=== PATIENT | male | born 1975 ===

== ENCOUNTER 2018-01-14 22:16 | Inpatient (IN) | payer MEDICAID, OTHER ==
[2018-01-14] MEDS ORDERED: Morphine 4 MG/ML VIAL IV STA (22:40)
[2018-01-14] MEDS ORDERED: Sodium Chloride 0.9% 1,000 ML IV STA (22:40)
[2018-01-14] MEDS ORDERED: Morphine 4 MG/ML VIAL ONE (22:44)
[2018-01-14 23:11] LABS: BASO # 0.1 K/uL (0.0-0.2); BASO % 0.6 % (0.0-2.0); EOS # 0.1 K/uL (0.0-0.7); HEMOGLOBIN 15.1 g/dL (12.0-18.0); LYMPH # 3.6 K/uL (1.0-4.3); LYMPH % 28.5 % (20.0-40.0); MEAN CELL VOLUME 95.6 fl (80.0-94.0); MEAN CORPUSCULAR HEMOGLOBIN 31.8 pg (27.0-31.0); MEAN CORPUSCULAR HGB CONC 33.3 g/dL (33.0-37.0); MEAN PLATELET VOLUME 10.1 fl (7.2-11.7); MONO # 1.3 K/uL (0.0-0.8); MONO % 10.6 % (0.0-10.0); NEUT # 7.4 K/uL (1.8-7.0); NEUT % 59.3 % (50.0-75.0); NRBC % 0.1 % (0.0-0.0); RBC 4.75 Mil/uL (4.40-5.90); RED CELL DISTRIBUTION WIDTH 13.3 % (11.5-14.5); WHITE BLOOD COUNT 12.5 K/uL (4.8-10.8)
[2018-01-14 23:29] LABS: CALCIUM 9.3 mg/dL (8.4-10.2)
[2018-01-14 23:44] LABS: ALB/GLOB RATIO 1.1 (1.0-2.1); ALBUMIN 4.4 g/dL (3.5-5.0)
[2018-01-15] MEDS ORDERED: Lactated Ringer's 1,000 ML IV SCH ×2 (00:15→02:00)
[2018-01-15] MEDS ORDERED: Iohexol 300 100 ML IJ ONE (00:34)
[2018-01-15] MEDS ORDERED: Sodium Chloride 0.9% 50 ML IV ONE (00:35)
[2018-01-15 00:49] LABS: URINE BILIRUBIN NEGATIVE (NEGATIVE); URINE BLOOD NEGATIVE (NEGATIVE); URINE CLARITY SLIGHTY-CLOUDY (Clear); URINE COLOR YELLOW (YELLOW); URINE GLUCOSE (UA) NEG (Normal); URINE LEUKOCYTE ESTERASE NEG Leu/uL (Negative); URINE PROTEIN NEGATIVE (NEGATIVE); URINE UROBILINOGEN 0.2-1.0 mg/dL (0.2-1.0)
--- NOTE | 2018-01-15 02:08 | CP.PCM.HP ---
<Tamar Beltre - Last Filed: 01/15/18 02:46> History of Present Illness - History of Present Illness History of Present Illness: CC: abdominal pain HPI: 42 YO make with PMHx of multi-substance (ETOH, cigarettes, marijuana and Cocaine) abuse presents to [facility] ED for abdominal pain. Pt states that his abd pain started 10 PM last night (01/14). Pain is located in the epigastria, pressure/burning like in nature, radiated belt like b/l to the flank and to the back. Pain associated with nausea and 2x episodes of emesis (NBNB). First episode of such pain, pain was initially rated as a 10/10, currently pain and nausea has resolved post IV meds. Last ETOH, marijuana and cocaine use was yesterday (01/13), drank multiple beers and took a few shots of hard liquor. PMD: none PMHx: gastritis SurgHx: appendectomy 2 yrs ago SHx: + ETOH, marijuana and Cocaine use, 20+yr smoking hx, multiple cigarettes a day FHx: denies Allergies: NKDA Meds: none Present on Admission - Present on Admission Any Indicators Present on Admission: No Review of Systems - Constitutional Constitutional: absent: Chills, Fever, Headache - Cardiovascular Cardiovascular: absent: Chest Pain, Dyspnea - Respiratory Respiratory: absent: Cough, Dyspnea - Gastrointestinal Gastrointestinal: Abdominal Pain, Nausea, Vomiting. absent: Diarrhea Past Patient History - Past Medical History & Family History Past Medical History?: Yes - Past Social History Smoking Status: Light Smoker < 10 Cigarettes Daily Alcohol: Occasional Drugs: Cannabis, Cocaine - CARDIAC Hx Cardiac Disorders: No - PULMONARY Hx Respiratory Disorders: No - NEUROLOGICAL Hx Neurological Disorder: No - HEENT Hx HEENT Problems: No - RENAL Hx Chronic Kidney Disease: No - ENDOCRINE/METABOLIC Hx Endocrine Disorders: No - HEMATOLOGICAL/ONCOLOGICAL Hx Blood Disorders: No Hx AIDS: No Hx Human Immunodeficiency Virus (HIV): No - INTEGUMENTARY Hx Dermatological Problems: No - MUSCULOSKELETAL/RHEUMATOLOGICAL Hx Falls: No - GASTROINTESTINAL Hx Gastrointestinal Disorders: Yes Hx Gastritis: Yes - GENITOURINARY/GYNECOLOGICAL Hx Genitourinary Disorders: No - PSYCHIATRIC Hx Psychophysiologic Disorder: No Hx Substance Use: No - SURGICAL HISTORY Hx Surgeries: No - ANESTHESIA Hx Anesthesia: No Hx Anesthesia Reactions: No Hx Malignant Hyperthermia: No Meds Allergies/Adverse Reactions: Allergies Allergy/AdvReac Type Severity Reaction Status Date / Time No Known Allergies Allergy Verified 01/14/18 22:25 Physical Exam - Constitutional Appears: No Acute Distress - Head Exam Head Exam: NORMAL INSPECTION, NORMOCEPHALIC - Eye Exam Eye Exam: EOMI, Normal appearance - ENT Exam ENT Exam: Mucous Membranes Moist - Respiratory Exam Respiratory Exam: Clear to Auscultation Bilateral, NORMAL BREATHING PATTERN. absent: Wheezes - Cardiovascular Exam Cardiovascular Exam: REGULAR RHYTHM, +S1, +S2 - GI/Abdominal Exam GI & Abdominal Exam: Normal Bowel Sounds, Soft. absent: Distended, Guarding, Rebound, Tenderness Additional comments: Neg samantha and turners sign Neg Hathaway's sign - Extremities Exam Extremities exam: Positive for: normal inspection. Negative for: calf tenderness, pedal edema - Back Exam Back exam: NORMAL INSPECTION. absent: CVA tenderness (L), CVA tenderness (R) - Neurological Exam Neurological exam: Alert, Oriented x3 - Psychiatric Exam Psychiatric exam: Normal Mood Results - Vital Signs Recent Vital Signs: Last Vital Signs Temp 97.9 F 01/14/18 22:26 Pulse 81 01/14/18 22:26 Resp 18 01/14/18 22:26 BP 141/101 H 01/14/18 22:26 Pulse Ox 99 01/14/18 22:26 - Labs Result Diagrams: 01/14/18 23:06 01/14/18 23:06 Labs: Laboratory Results - last 24 hr 01/14/18 01/14/18 01/15/18 23:06 23:06 00:40 WBC 12.5 H RBC 4.75 Hgb 15.1 Hct 45.4 MCV 95.6 H MCH 31.8 H MCHC 33.3 RDW 13.3 Plt Count 420 H D MPV 10.1 Neut % (Auto) 59.3 Lymph % (Auto) 28.5 [place] % (Auto) 10.6 H Eos % (Auto) 1.0 Baso % (Auto) 0.6 Neut # (Auto) 7.4 H Lymph # (Auto) 3.6 [place] # (Auto) 1.3 H Eos # (Auto) 0.1 Baso # (Auto) 0.1 Sodium 140 Potassium 5.0 Chloride 101 Carbon Dioxide 28 Anion Gap 16 BUN 20 Creatinine 1.6 H Est GFR ( Amer) 58 Est GFR (Non-Af Amer) 48 Random Glucose 90 Calcium 9.3 Total Bilirubin 0.7 AST 64 H ALT 36 Alkaline Phosphatase 57 Total Protein 8.4 H Albumin 4.4 Globulin 3.9 Albumin/Globulin Ratio 1.1 Lipase 89281 H Urine Color Yellow Urine Clarity Slighty-cloudy Urine pH 7.0 Ur Specific [place] 1.015 Urine Protein Negative Urine Glucose (UA) Neg Urine Ketones Negative Urine Blood Negative Urine Nitrate Negative Urine Bilirubin Negative Urine Urobilinogen 0.2-1.0 Ur Leukocyte Esterase Neg Assessment & Plan - Assessment and Plan (Free Text) Assessment: Assessment/Plan: 42 YO make with PMHx of multi-substance abuse (ETOH, cigarettes, marijuana and Cocaine) is admitted for acute pancreatitis. Acute pancreatitis -likely 2/2 to ETOH/substance abuse, other causes include gallstones vs elevated triglycerides -CT abd and pelvis sig for diverticulitis with inflammatory changes around the gallbladder (no stones noted). -Lipase elevated 20,000+ -[place]'s criteria: 1 (LDH 946), severe pancreatitis unlikely, 1% predicted mortality -NPO, cont IVFs, s/p 3 L bolus, cont LR @350ml/hr -Pain management: morphine PRN -GI consulted, follow up recs -AM Labs, follow up official CT reading Leukocytosis -likely 2/2 to acute pancreatitis, normal neutrophils -cont tx of pancreatitis -follow up labs Multi-substance abuse -encourage better lifestyle decisions DVT propylx -Lovenox SC <Rick Bowden - Last Filed: 01/15/18 04:51> Results - Vital Signs Recent Vital Signs: Last Vital Signs Temp 97.7 F 01/15/18 04:13 Pulse 74 01/15/18 04:13 Resp 18 01/15/18 04:13 BP 127/74 01/15/18 04:13 Pulse Ox 95 01/15/18 04:13 - Labs Result Diagrams: 01/14/18 23:06 01/14/18 23:06 Labs: Laboratory Results - last 24 hr 01/14/18 01/14/18 01/15/18 23:06 23:06 00:40 WBC 12.5 H RBC 4.75 Hgb 15.1 Hct 45.4 MCV 95.6 H MCH 31.8 H MCHC 33.3 RDW 13.3 Plt Count 420 H D MPV 10.1 Neut % (Auto) 59.3 Lymph % (Auto) 28.5 [place] % (Auto) 10.6 H Eos % (Auto) 1.0 Baso % (Auto) 0.6 Neut # (Auto) 7.4 H Lymph # (Auto) 3.6 [place] # (Auto) 1.3 H Eos # (Auto) 0.1 Baso # (Auto) 0.1 Sodium 140 Potassium 5.0 Chloride 101 Carbon Dioxide 28 Anion Gap 16 BUN 20 Creatinine 1.6 H Est GFR ( Amer) 58 Est GFR (Non-Af Amer) 48 Random Glucose 90 Calcium 9.3 Total Bilirubin 0.7 AST 64 H ALT 36 Alkaline Phosphatase 57 Lactate Dehydrogenase Total Protein 8.4 H Albumin 4.4 Globulin 3.9 Albumin/Globulin Ratio 1.1 Lipase 98265 H Urine Color Yellow Urine Clarity Slighty-cloudy Urine pH 7.0 Ur Specific [place] 1.015 Urine Protein Negative Urine Glucose (UA) Neg Urine Ketones Negative Urine Blood Negative Urine Nitrate Negative Urine Bilirubin Negative Urine Urobilinogen 0.2-1.0 Ur Leukocyte Esterase Neg 01/15/18 01:30 WBC RBC Hgb Hct MCV MCH MCHC RDW Plt Count MPV Neut % (Auto) Lymph % (Auto) [place] % (Auto) Eos % (Auto) Baso % (Auto) Neut # (Auto) Lymph # (Auto) [place] # (Auto) Eos # (Auto) Baso # (Auto) Sodium Potassium Chloride Carbon Dioxide Anion Gap BUN Creatinine Est GFR ( Amer) Est GFR (Non-Af Amer) Random Glucose Calcium Total Bilirubin AST ALT Alkaline Phosphatase Lactate Dehydrogenase 946 H Total Protein Albumin Globulin Albumin/Globulin Ratio Lipase Urine Color Urine Clarity Urine pH Ur Specific [place] Urine Protein Urine Glucose (UA) Urine Ketones Urine Blood Urine Nitrate Urine Bilirubin Urine Urobilinogen Ur Leukocyte Esterase Attending/Attestation - Attestation I have personally seen and examined this patient.: Yes I have fully participated in the care of the patient.: Yes I have reviewed all pertinent clinical information: Yes Notes (Text): 01/15/18 04:32 I saw, examined and discussed this patient with Dr Beltre. I agree with the assessment and plan which represent my direct input. This is a 42 years old male with Alcohol Abuse hx, comes with pain across the upper abdomen, band like , andradiating to the back, [place] [address] [place] Abdomen/Pelvis Uncomplicated Diverticulosis The Pancrease is of normal contour and attenuation characteristic Mild diffuse thickening of the gallbladder. The patient was given 2 liters of fluid in the ED. We will continue with Ringers lactate at 350mls/hr - Pain management with Dilaudid - NPO except medication -Consult GI Dr Gibson - Follow Renal labs and electrolytes. #. DVT Prophlaxis with SCD Rick Bowden MD 03/17/17 04:50
[2018-01-15] MEDS: Lactated Ringer's 1,000 ML IV SCH ×8 (04:11→23:14)
--- NOTE | 2018-01-15 06:01 | ED PDOC ---
HPI: Abdomen Time Seen by Provider: 01/14/18 22:28 Chief Complaint (Nursing): Abdominal Pain Chief Complaint (Provider): Epigastric abdominal pain History Per: Patient History/Exam Limitations: no limitations Onset/Duration Of Symptoms: Hrs Outside of [place] travel?: No Additional Complaint(s): 42 yo male with no medical problems, social drinker and smoker presents for e valuation of epigastric pain for 30 minutes. PT denies similar in the past. Pt states the pain wraps around his body to his back. Pt states he did not drink today but did have hard liquor the night before (01/13/18). Pt denies SOB. Pt reports nausea and vomiting without blood. Past Medical History Reviewed: Historical Data, Nursing Documentation, Vital Signs Vital Signs: Last Vital Signs Temp 97.7 F 01/15/18 04:13 Pulse 74 01/15/18 04:13 Resp 18 01/15/18 04:13 BP 127/74 01/15/18 04:13 Pulse Ox 95 01/15/18 04:13 - Medical History PMH: No Chronic Diseases Denies: Gastritis, HIV, HTN, Chronic Kidney Disease - Surgical History Surgical History: Appendectomy (1 yr ago) - Family History Family History: States: Unknown Family Hx - Living Arrangements Living Arrangements: With Family - Social History Current smoker - smoking cessation education provided: Yes Alcohol: Occasional Drugs: Cannabis, Cocaine - Immunization History Hx Tetanus Toxoid Vaccination: Yes Hx Influenza Vaccination: No Hx Pneumococcal Vaccination: No - Home Medications Home Medications: Ambulatory Orders Medication Instructions Recorded oxyCODONE/Acetaminophen [Percocet 1 ea PO Q6 PRN #20 tab 04/13/16 5/325 mg Tab] - Allergies Allergies/Adverse Reactions: Allergies Allergy/AdvReac Type Severity Reaction Status Date / Time No Known Allergies Allergy Verified 01/14/18 22:25 Review of Systems ROS Statement: Except As Marked, All Systems Reviewed And Found Negative Constitutional: Negative for: Fever, Chills Gastrointestinal: Positive for: Nausea, Vomiting, Abdominal Pain Physical Exam - Reviewed Nursing Documentation Reviewed: Yes Vital Signs Reviewed: Yes - Physical Exam Appears: Positive for: Well, Non-toxic, No Acute Distress Head Exam: Positive for: ATRAUMATIC, NORMAL INSPECTION, NORMOCEPHALIC Skin: Positive for: Normal Color, Warm, DRY Eye Exam: Positive for: Normal appearance ENT: Positive for: Normal ENT Inspection Neck: Positive for: Normal, Painless ROM Cardiovascular/Chest: Positive for: Regular Rate, Rhythm Respiratory: Positive for: Normal Breath Sounds. Negative for: Accessory Muscle Use, Respiratory Distress Gastrointestinal/Abdominal: Positive for: Soft, Tenderness ((+) epigastric tenderness ). Negative for: Normal Exam, Distended, Guarding, Rebound Back: Positive for: Normal Inspection Extremity: Positive for: Normal ROM Neurologic/Psych: Positive for: Alert, Oriented - Laboratory Results Result Diagrams: 01/14/18 23:06 01/14/18 23:06 - ECG O2 Sat by Pulse Oximetry: 95 Medical Decision Making Medical Decision Making: Lipase >20,[address] CT: The liver is of uniform attenuation without mass or defect. There is no intra or extrahepatic biliary ductal dilatation. The spleen is normal. The gallbladder is diffusely thickened. The pancreas is of normal contour and attenuation characteristics. There is no evidence of adrenal mass. Both kidneys demonstrate prompt and equal nephrograms. The kidneys are normal in size, shape and configuration. There is no evidence of renal or ureteral mass. No renal or ureteral calculi are identified. There is no hydroureter or hydronephrosis. No evidence for appendicitis. There is no bowel wall thickening. No evidence for small or large bowel obstruction. There is no evidence of abdominal ascites or lymphadenopathy. Uncomplicated colonic diverticulosis. There is no evidence of intrinsic or extrinsic bladder mass. There is no pelvic ascites or lymphadenopathy. Fat-containing umbilical hernia without incarceration. Images of the lung bases show no evidence of pleural or parenchymal mass. There are no pleural effusions. The bony structures are free of lytic or blastic lesions. IMPRESSION: Uncomplicated colonic diverticulosis. Mild diffuse thickening of the gallbladder, probably acute inflammatory pathology. This can be better evaluated by means of ultrasound exam if clinically warranted. Discussed admission with Dr. Bowden and Dr. Beltre. Discussed with Dr. Gibson. US ordered for AM Disposition - Clinical Impression Clinical Impression: Pancreatitis - Patient ED Disposition Is Patient to be Admitted: Yes - Disposition Disposition Time: 01:10 Condition: GOOD
[2018-01-15 06:59] LABS: BASO % 0.4 % (0.0-2.0); EOS % 0.2 % (0.0-4.0); HEMOGLOBIN 13.7 g/dL (12.0-18.0); LYMPH % 21.4 % (20.0-40.0); MEAN CORPUSCULAR HEMOGLOBIN 32.9 pg (27.0-31.0); MEAN CORPUSCULAR HGB CONC 34.2 g/dL (33.0-37.0); MEAN PLATELET VOLUME 9.9 fl (7.2-11.7); MONO # 0.8 K/uL (0.0-0.8); MONO % 8.4 % (0.0-10.0); NEUT # 6.6 K/uL (1.8-7.0); NEUT % 69.6 % (50.0-75.0); RBC 4.17 Mil/uL (4.40-5.90); RED CELL DISTRIBUTION WIDTH 13.1 % (11.5-14.5); WHITE BLOOD COUNT 9.5 K/uL (4.8-10.8)
[2018-01-15 07:18] LABS: LDL CHOLESTEROL 61 mg/dL (0-129)
[2018-01-15 07:24] LABS: ALB/GLOB RATIO 1.1 (1.0-2.1); ALBUMIN 3.4 g/dL (3.5-5.0); ALT/SGPT 50 U/L (21-72); AST/SGOT 50 U/L (17-59); BLOOD UREA NITROGEN 12 mg/dl (9-20); CALCIUM 8.7 mg/dL (8.4-10.2); GFR NON-AFRICAN AMERICAN > 60; HDL CHOLESTEROL 39 MG/DL (30-70)
[2018-01-15] MEDS ORDERED: Enoxaparin 40 mg Syringe SC SCH (09:00)
[2018-01-15] MEDS: Thiamine 100 mg/ml Inj IM SCH (09:58)
--- NOTE | 2018-01-15 10:18 | RAD ---
Date of service: 01/15/2018 HISTORY: pancreatitis COMPARISON: 04/12/2016 TECHNIQUE: Chest PA and lateral FINDINGS: LUNGS: No active pulmonary disease. PLEURA: No significant pleural effusion identified. No pneumothorax apparent. CARDIOVASCULAR: No aortic atherosclerotic calcification present. Normal cardiac size. No pulmonary vascular congestion. OSSEOUS STRUCTURES: No significant abnormalities. VISUALIZED UPPER ABDOMEN: Normal. OTHER FINDINGS: None. IMPRESSION: No active disease.
--- NOTE | 2018-01-15 11:41 | US ---
Date of service: 01/15/2018 HISTORY: epigastric pain, abnormal GB on CT COMPARISON: CT abdomen/pelvis 01/15/2018 TECHNIQUE: Sonographic evaluation of the abdomen. FINDINGS: LIVER: Measures 15.2 cm. Diffusely increased echogenicity of the liver parenchyma. Consistent with fatty infiltration. Smooth contour. No mass. No biliary ductal dilatation. GALLBLADDER: No cholelithiasis. Nonmobile echogenic structures are seen along the gallbladder wall the largest of which measures 6 mm in diameter. Likely polyps. A 6 mm gallbladder polyp should be followed with repeat ultrasound examination in 6 months. Mild mural thickening up to 4 mm, nonspecific. Minimal pericholecystic fluid. Negative sonographic Hathaway sign. No pericholecystic fluid. COMMON BILE DUCT: Measures 3 mm. No stones. No dilatation. PANCREAS: Unremarkable as visualized. No mass. No ductal dilatation. RIGHT KIDNEY: Measures 10.5cm. Normal echogenicity. No calculus, mass, or hydronephrosis. LEFT KIDNEY: Measures 10.6cm. Normal echogenicity. No calculus, mass, or hydronephrosis. SPLEEN: Normal in size and contour. No mass. AORTA: No aneurysmal dilatation. IVC: Unremarkable. OTHER FINDINGS: None. IMPRESSION: Mild nonspecific mural thickening of the gallbladder. Minimal pericholecystic fluid. In the absence of cholelithiasis or sonographic Hathaway sign, this is a nonspecific finding. Small gallbladder polyps, largest 6 mm. Given the presence of a 6 mm polyp, follow-up with ultrasound is advised in 6 months.
--- NOTE | 2018-01-15 12:03 | CT ---
Date of service: 01/15/2018 PROCEDURE: CT Abdomen and Pelvis with contrast HISTORY: epigastric pain, vomiting COMPARISON: 04/12/2016 TECHNIQUE: Contrast dose: 80 mL Omnipaque 300 Radiation dose: Total exam DLP = 253.67 mGy-cm. This CT exam was performed using one or more of the following dose reduction techniques: Automated exposure control, adjustment of the mA and/or kV according to patient size, and/or use of iterative reconstruction technique. FINDINGS: LOWER THORAX: Unremarkable. LIVER: Unremarkable. No gross lesion or ductal dilatation. GALLBLADDER AND BILE DUCTS: Thickened gallbladder wall with trace pericholecystic fluid. No calcified gallstones. Normal caliber common bile duct. PANCREAS: Unremarkable. No gross lesion or ductal dilatation. SPLEEN: Unremarkable. ADRENALS: Unremarkable. No mass. KIDNEYS AND URETERS: Unremarkable. No hydronephrosis. No solid mass. VASCULATURE: Unremarkable. No aortic aneurysm. No aortic atherosclerotic calcification or mural plaque present. BOWEL: Mild sigmoid diverticulosis without evidence of diverticulitis. No bowel obstruction. No other abnormal bowel loops. APPENDIX: Postoperative changes at cecal apex consistent with appendectomy. PERITONEUM: No ascites. Small umbilical hernia containing only mesenteric fat. No pneumoperitoneum. LYMPH NODES: Unremarkable. No enlarged lymph nodes. BLADDER: Suboptimally distended. No gross abnormality peer REPRODUCTIVE: Normal prostate. BONES: No acute fracture. OTHER FINDINGS: None. IMPRESSION: Gallbladder mural thickening and trace pericholecystic fluid. No calcified gallstones. Correlate with ultrasound examination. Possible cholecystitis though nonspecific finding that may also be seen in pancreatitis, acute hepatitis, etc. No other acute abnormality. The preliminary findings for this examination were reported by [facility] Radiology at 1:14 a.m. on 01/15/2018. There is concurrence of this report with the preliminary findings. d right
--- NOTE | 2018-01-15 13:01 | CP.PCM.CON ---
History of Present Illness - History of Present Illness History of Present Illness: 42 yo male with h/o multisubstance abuse including alcohol and cocaine admitted with abdominal pain (12/02 ) and elevated lipase. Was last drinking heavily on 01/13. Patient denies prior episodes of pancreatitis. Currently post medication he feels comfortable.. Review of Systems - Constitutional Constitutional: absent: Chills - EENT Eyes: absent: Blurred Vision Ears: absent: Ear Discharge Nose/Mouth/Throat: absent: Epistaxis - Cardiovascular Cardiovascular: absent: Chest Pain - Respiratory Respiratory: absent: Cough - Gastrointestinal Gastrointestinal: As Per HPI - Genitourinary Genitourinary: absent: Change in Urinary Stream Past Patient History - Past Medical History & Family History Past Medical History?: Yes - Past Social History Alcohol: Occasional Drugs: Cannabis, Cocaine - CARDIAC Hx Hypertension: No - PULMONARY Hx Respiratory Disorders: No - NEUROLOGICAL Hx Neurological Disorder: No - HEENT Hx HEENT Problems: No - RENAL Hx Chronic Kidney Disease: No - ENDOCRINE/METABOLIC Hx Endocrine Disorders: No Hx Diabetes Mellitus Type 2: No - HEMATOLOGICAL/ONCOLOGICAL Hx Human Immunodeficiency Virus (HIV): No - INTEGUMENTARY Hx Dermatological Problems: No - MUSCULOSKELETAL/RHEUMATOLOGICAL Hx Musculoskeletal Disorders: No Hx Falls: No - GASTROINTESTINAL Hx Gastritis: No - GENITOURINARY/GYNECOLOGICAL Hx Genitourinary Disorders: No - PSYCHIATRIC Hx Psychophysiologic Disorder: No Hx Substance Use: Yes (denies substance use) - SURGICAL HISTORY Hx Appendectomy: Yes (1 yr ago) - ANESTHESIA Hx Anesthesia: Yes Hx Anesthesia Reactions: No Hx Malignant Hyperthermia: No Meds Allergies/Adverse Reactions: Allergies Allergy/AdvReac Type Severity Reaction Status Date / Time No Known Allergies Allergy Verified 01/14/18 22:25 - Medications Medications: Current Medications Hydromorphone HCl (Dilaudid) 1 mg IVP Q4H PRN PRN Reason: Pain, severe (8-10) Last Admin: 01/15/18 11:46 Dose: 1 mg Hydromorphone HCl (Dilaudid) 0.5 mg IVP Q4H PRN PRN Reason: Pain, moderate (4-7) Stop: 01/17/18 04:20 Lactated Ringer's (Lactated Ringer's) 1,000 mls @ 1,000 mls/hr IV .Q1H BARBARA Last Admin: 01/15/18 01:43 Dose: 1,000 mls/hr Lactated Ringer's (Lactated Ringer's) 1,000 mls @ 350 mls/hr IV .Q2H52M [facility] Last Admin: 01/15/18 11:47 Dose: 350 mls/hr Lorazepam (Ativan) 2 mg IVP Q4H PRN PRN Reason: Agitation Ondansetron HCl (Zofran Inj) 4 mg IVP Q6 PRN PRN Reason: Nausea/Vomiting Last Admin: 01/15/18 04:52 Dose: 4 mg Pantoprazole Sodium (Protonix Inj) 40 mg IVP DAILY [facility] Last Admin: 01/15/18 09:59 Dose: 40 mg Thiamine HCl (Vitamin B1 Inj) 100 mg IM DAILY [facility] Stop: 01/18/18 09:01 Last Admin: 01/15/18 09:58 Dose: 100 mg Physical Exam - Head Exam Head Exam: ATRAUMATIC - Eye Exam Eye Exam: EOMI - ENT Exam ENT Exam: Normal Exam - Neck Exam Neck exam: Positive for: Normal Inspection - Respiratory Exam Respiratory Exam: Clear to Auscultation Bilateral - Cardiovascular Exam Cardiovascular Exam: REGULAR RHYTHM - GI/Abdominal Exam GI & Abdominal Exam: Normal Bowel Sounds, Soft - Rectal Exam Rectal Exam: NORMAL INSPECTION Results - Vital Signs Recent Vital Signs: Last Vital Signs Temp 97.6 F 01/15/18 08:42 Pulse 71 01/15/18 08:42 Resp 20 01/15/18 08:42 BP 126/76 01/15/18 08:42 Pulse Ox 97 01/15/18 08:42 - Labs Result Diagrams: 01/15/18 06:00 01/15/18 06:00 Labs: Laboratory Results - last 24 hr 01/14/18 01/14/18 01/15/18 23:06 23:06 00:40 WBC 12.5 H RBC 4.75 Hgb 15.1 Hct 45.4 MCV 95.6 H MCH 31.8 H MCHC 33.3 RDW 13.3 Plt Count 420 H D MPV 10.1 Neut % (Auto) 59.3 Lymph % (Auto) 28.5 [place] % (Auto) 10.6 H Eos % (Auto) 1.0 Baso % (Auto) 0.6 Neut # (Auto) 7.4 H Lymph # (Auto) 3.6 [place] # (Auto) 1.3 H Eos # (Auto) 0.1 Baso # (Auto) 0.1 Sodium 140 Potassium 5.0 Chloride 101 Carbon Dioxide 28 Anion Gap 16 BUN 20 Creatinine 1.6 H Est GFR ( Amer) 58 Est GFR (Non-Af Amer) 48 Random Glucose 90 Calcium 9.3 Total Bilirubin 0.7 AST 64 H ALT 36 Alkaline Phosphatase 57 Lactate Dehydrogenase Total Protein 8.4 H Albumin 4.4 Globulin 3.9 Albumin/Globulin Ratio 1.1 Triglycerides Cholesterol LDL Cholesterol Direct HDL Cholesterol Lipase 97068 H Urine Color Yellow Urine Clarity Slighty-cloudy Urine pH 7.0 Ur Specific [place] 1.015 Urine Protein Negative Urine Glucose (UA) Neg Urine Ketones Negative Urine Blood Negative Urine Nitrate Negative Urine Bilirubin Negative Urine Urobilinogen 0.2-1.0 Ur Leukocyte Esterase Neg Hep Bs Antigen 01/15/18 01/15/18 01/15/18 01:30 06:00 06:00 WBC 9.5 RBC 4.17 L Hgb 13.7 Hct 40.1 MCV 96.0 H MCH 32.9 H MCHC 34.2 RDW 13.1 Plt Count 325 MPV 9.9 Neut % (Auto) 69.6 Lymph % (Auto) 21.4 [place] % (Auto) 8.4 Eos % (Auto) 0.2 Baso % (Auto) 0.4 Neut # (Auto) 6.6 Lymph # (Auto) 2.0 [place] # (Auto) 0.8 Eos # (Auto) 0.0 Baso # (Auto) 0.0 Sodium 141 Potassium 4.1 Chloride 104 Carbon Dioxide 30 Anion Gap 11 BUN 12 Creatinine 1.0 Est GFR ( Amer) > 60 Est GFR (Non-Af Amer) > 60 Random Glucose 104 Calcium 8.7 Total Bilirubin 0.2 AST 50 ALT 50 Alkaline Phosphatase 62 Lactate Dehydrogenase 946 H Total Protein 6.3 Albumin 3.4 L D Globulin 2.9 Albumin/Globulin Ratio 1.1 Triglycerides 70 Cholesterol 100 LDL Cholesterol Direct 61 HDL Cholesterol 39 Lipase Urine Color Urine Clarity Urine pH Ur Specific [place] Urine Protein Urine Glucose (UA) Urine Ketones Urine Blood Urine Nitrate Urine Bilirubin Urine Urobilinogen Ur Leukocyte Esterase Hep Bs Antigen 01/15/18 07:20 WBC RBC Hgb Hct MCV MCH MCHC RDW Plt Count MPV Neut % (Auto) Lymph % (Auto) [place] % (Auto) Eos % (Auto) Baso % (Auto) Neut # (Auto) Lymph # (Auto) [place] # (Auto) Eos # (Auto) Baso # (Auto) Sodium Potassium Chloride Carbon Dioxide Anion Gap BUN Creatinine Est GFR ( Amer) Est GFR (Non-Af Amer) Random Glucose Calcium Total Bilirubin AST ALT Alkaline Phosphatase Lactate Dehydrogenase Total Protein Albumin Globulin Albumin/Globulin Ratio Triglycerides Cholesterol LDL Cholesterol Direct HDL Cholesterol Lipase Urine Color Urine Clarity Urine pH Ur Specific [place] Urine Protein Urine Glucose (UA) Urine Ketones Urine Blood Urine Nitrate Urine Bilirubin Urine Urobilinogen Ur Leukocyte Esterase Hep Bs Antigen Negative Assessment & Plan (1) Pancreatitis Assessment and Plan: Acute pancreatitis related to Etoh and substance abuse. IV fluids and adequate analgesia recommended. Clear liquids started today. May advance diet as tolerated Status: Acute
[2018-01-15 13:18] VITALS: BMI 23.3
[2018-01-16] MEDS: Lactated Ringer's 1,000 ML IV SCH ×5 (01:28→08:42)
[2018-01-16 07:02] LABS: OPIATES, UR NEGATIVE (NEGATIVE)
[2018-01-16 07:09] LABS: HEMOGLOBIN 13.5 g/dL (12.0-18.0); MEAN CELL VOLUME 98.4 fl (80.0-94.0); MEAN CORPUSCULAR HEMOGLOBIN 32.2 pg (27.0-31.0); MEAN CORPUSCULAR HGB CONC 32.7 g/dL (33.0-37.0); RBC 4.18 Mil/uL (4.40-5.90); WHITE BLOOD COUNT 6.8 K/uL (4.8-10.8)
[2018-01-16 07:16] LABS: BARBITURATES, UR NEGATIVE (NEGATIVE); BENZODIAZEPINES, UR NEGATIVE (NEGATIVE); PHENCYCLIDINE, UR NEGATIVE (NEGATIVE)
[2018-01-16 07:56] LABS: ALB/GLOB RATIO 1.2 (1.0-2.1); ALBUMIN 3.6 g/dL (3.5-5.0); ALT/SGPT 46 U/L (21-72); AST/SGOT 32 U/L (17-59); BLOOD UREA NITROGEN 6 mg/dl (9-20); CALCIUM 9.4 mg/dL (8.4-10.2); GFR NON-AFRICAN AMERICAN > 60; LIPASE 202 U/L (23-300)
[2018-01-16 08:10] VITALS: BP 112/76; PULSE 58; RESP 19; TEMP 97.6; O2SAT 96
[2018-01-16] MEDS: Thiamine 100 mg/ml Inj IM SCH (08:39)
--- NOTE | 2018-01-16 10:53 | CP.PCM.DIS ---
Provider - Provider Date of Admission: 01/15/18 01:19 Attending physician: Rick Bowden Primary care physician: none Consults: Gastroenterology - Dr. Gibson Time Spent in preparation of Discharge (in minutes): 30 Hospital Course - Lab Results Lab Results: Most Recent Lab Values WBC 6.8 K/uL (4.8-10.8) 01/16/18 05:30 RBC 4.18 Mil/uL (4.40-5.90) L 01/16/18 05:30 Hgb 13.5 g/dL (12.0-18.0) 01/16/18 05:30 Hct 41.2 % (35.0-51.0) 01/16/18 05:30 MCV 98.4 fl (80.0-94.0) H D 01/16/18 05:30 MCH 32.2 pg (27.0-31.0) H 01/16/18 05:30 MCHC 32.7 g/dL (33.0-37.0) L 01/16/18 05:30 RDW 13.0 % (11.5-14.5) 01/16/18 05:30 Plt Count 326 K/uL (130-400) 01/16/18 05:30 MPV 9.9 fl (7.2-11.7) 01/15/18 06:00 Neut % (Auto) 69.6 % (50.0-75.0) 01/15/18 06:00 Lymph % (Auto) 21.4 % (20.0-40.0) 01/15/18 06:00 Daniels % (Auto) 8.4 % (0.0-10.0) 01/15/18 06:00 Eos % (Auto) 0.2 % (0.0-4.0) 01/15/18 06:00 Baso % (Auto) 0.4 % (0.0-2.0) 01/15/18 06:00 Neut # (Auto) 6.6 K/uL (1.8-7.0) 01/15/18 06:00 Lymph # (Auto) 2.0 K/uL (1.0-4.3) 01/15/18 06:00 Daniels # (Auto) 0.8 K/uL (0.0-0.8) 01/15/18 06:00 Eos # (Auto) 0.0 K/uL (0.0-0.7) 01/15/18 06:00 Baso # (Auto) 0.0 K/uL (0.0-0.2) 01/15/18 06:00 Sodium 140 mmol/l (132-148) 01/16/18 05:30 Potassium 4.3 MMOL/L (3.6-5.0) 01/16/18 05:30 Chloride 102 mmol/L (98-107) 01/16/18 05:30 Carbon Dioxide 32 mmol/L (22-30) H 01/16/18 05:30 Anion Gap 10 (10-20) 01/16/18 05:30 BUN 6 mg/dl (9-20) L 01/16/18 05:30 Creatinine 1.0 mg/dl (0.8-1.5) 01/16/18 05:30 Est GFR ( Amer) > 60 01/16/18 05:30 Est GFR (Non-Af Amer) > 60 01/16/18 05:30 Random Glucose 93 mg/dL (75-110) 01/16/18 05:30 Calcium 9.4 mg/dL (8.4-10.2) 01/16/18 05:30 Phosphorus 3.3 mg/dl (2.5-4.5) 01/16/18 05:30 Magnesium 1.7 MG/DL (1.6-2.3) 01/16/18 05:30 Total Bilirubin 0.4 mg/dl (0.2-1.3) 01/16/18 05:30 AST 32 U/L (17-59) 01/16/18 05:30 ALT 46 U/L (21-72) 01/16/18 05:30 Alkaline Phosphatase 61 U/L (38-126) 01/16/18 05:30 Lactate Dehydrogenase 946 U/L (313-618) H 01/15/18 01:30 Total Protein 6.5 G/DL (6.3-8.2) 01/16/18 05:30 Albumin 3.6 g/dL (3.5-5.0) 01/16/18 05:30 Globulin 3.0 gm/dL (2.2-3.9) 01/16/18 05:30 Albumin/Globulin Ratio 1.2 (1.0-2.1) 01/16/18 05:30 Triglycerides 70 mg/DL (0-149) 01/15/18 06:00 Cholesterol 100 mg/dL (0-199) 01/15/18 06:00 LDL Cholesterol Direct 61 mg/dL (0-129) 01/15/18 06:00 HDL Cholesterol 39 MG/DL (30-70) 01/15/18 06:00 Lipase 202 U/L (23-300) 01/16/18 05:30 Urine Color Yellow (YELLOW) 01/15/18 00:40 Urine Clarity Slighty-cloudy (Clear) 01/15/18 00:40 Urine pH 7.0 (5.0-8.0) 01/15/18 00:40 Ur Specific Trosper 1.015 (1.003-1.030) 01/15/18 00:40 Urine Protein Negative mg/dL (NEGATIVE) 01/15/18 00:40 Urine Glucose (UA) Neg mg/dL (Normal) 01/15/18 00:40 Urine Ketones Negative mg/dL (NEGATIVE) 01/15/18 00:40 Urine Blood Negative (NEGATIVE) 01/15/18 00:40 Urine Nitrate Negative (NEGATIVE) 01/15/18 00:40 Urine Bilirubin Negative (NEGATIVE) 01/15/18 00:40 Urine Urobilinogen 0.2-1.0 mg/dL (0.2-1.0) 01/15/18 00:40 Ur Leukocyte Esterase Neg Reji/uL (Negative) 01/15/18 00:40 Urine Opiates Screen Negative (NEGATIVE) 01/16/18 06:41 Urine Methadone Screen Negative (NEGATIVE) 01/16/18 06:41 Ur Barbiturates Screen Negative (NEGATIVE) 01/16/18 06:41 Ur Phencyclidine Scrn Negative (NEGATIVE) 01/16/18 06:41 Ur Amphetamines Screen Negative (NEGATIVE) 01/16/18 06:41 U Benzodiazepines Scrn Negative (NEGATIVE) 01/16/18 06:41 U Oth Cocaine Metabols Negative (NEGATIVE) 01/16/18 06:41 U Cannabinoids Screen Negative (NEGATIVE) 01/16/18 06:41 Hep Bs Antigen Negative (NEGATIVE) 01/15/18 07:20 HIV 1&2 Ag/Ab, 4th Gen Nonreactive (Nonreactive) 01/15/18 07:20 - Hospital Course Hospital Course: 42yo male with PMHx of multi-substance (ETOH, cigarettes, marijuana and cocaine) abuse, presented to ED for epigastric pain radiating to back, and associated with 2 episodes NBNB emesis. Admitted to [facility] for episode of acute pancreatitis (pt denies prior episodes). Lipase on admission was found to be 20k; also noted to have Cr 1.6. GI was consulted - recommended IV fluuds, analgesia, and advancing diet as tolerated. Pt was hydrated with LR at 350 mls/hr, and received thiamine and pantoprazole. Pain was controlled. Patient tolerated liquid diet on day 2 of admission, and lipase trended down to 200. With hydration, Cr trended down to 1. This morning, patient has tolerated regular diet and is pain free. He is hemodynamically stable and afebrile. He is stable for discharge. Advised to avoid alcohol and to follow up with PMD within 1 week. Discharge Exam - Head Exam Head Exam: ATRAUMATIC - Eye Exam Eye Exam: Normal appearance - ENT Exam ENT Exam: Mucous Membranes Moist - Respiratory Exam Respiratory Exam: Clear to PA & Lateral, NORMAL BREATHING PATTERN - Cardiovascular Exam Cardiovascular Exam: REGULAR RHYTHM, +S1, +S2 - GI/Abdominal Exam GI & Abdominal Exam: Normal Bowel Sounds, Soft. absent: Tenderness - Extremities Exam Additional comments: no calf tenderness - Neurological Exam Neurological exam: Alert, Oriented x3 - Psychiatric Exam Psychiatric exam: Normal Affect - Skin Skin Exam: Dry, Warm Discharge Plan - Follow Up Plan Condition: GOOD Disposition: HOME/ ROUTINE Instructions: Pancreatitis (DC) Additional Instructions: Please follow up with primary care office within 1 week. Avoid alcohol intake. Return to ED if symptoms worsen or recur. Referrals: [facility] [Provider Group]
== END 2018-01-16 11:40 | disposition home or self-care (01) | DRG 282 ==
LOC: H.ER 22:16 → H.ERHOLD 01-15 01:19 → H.MEDSURG1 01-15 03:54
PROVIDERS: ADMIT Internal Medicine; ATTEND Internal Medicine
DX: K85.20 Alcohol induced acute pancreatitis without necrosis or infection (principal); N17.9 Acute kidney failure, unspecified; Z71.41 Alcohol abuse counseling and surveillance of alcoholic; F17.210 Nicotine dependence, cigarettes, uncomplicated; K29.70 Gastritis, unspecified, without bleeding; F10.10 Alcohol abuse, uncomplicated; Y90.0 Blood alcohol level of less than 20 mg/100 ml